=== PATIENT | male | born 1965 | race Caucasian/White ===

== ENCOUNTER 2018-03-05 09:27 | Emergency (ER) | payer BC ==
--- NOTE | 2018-03-05 10:42 | EDM.PDOC ---
ED HPI GENERAL MEDICAL PROBLEM - General Chief Complaint: ENT Problem Stated Complaint: LT SIDE OF FACE SWOLLEN Time Seen by Provider: 03/05/18 10:30 Source of Information: Reports: Patient History Limitations: Reports: No Limitations - History of Present Illness INITIAL COMMENTS - FREE TEXT/NARRATIVE: HISTORY AND PHYSICAL: History of present illness: She comes to the emergency room complaining of tenderness and swelling just outside of his left ear. Symptoms haven't present for the past 2 days and feel as though they are worsening. He denies earaches and difficulty hearing. He's not had any drainage from his years. She is just tender with palpation to his left ear. Denies fever and chills no shortness of breath chest pain or difficulty breathing. He has not felt ill with any infections or illness. He works in a local [employer], and uses earplugs from time to time but not regularly. Review of systems: As per history of present illness and below otherwise all systems reviewed and negative. Past medical history: As per history of present illness and as reviewed below otherwise noncontributory. Surgical history: As per history of present illness and as reviewed below otherwise noncontributory. Social history: No reported history of drug or alcohol abuse. Family history: As per history of present illness and as reviewed below otherwise noncontributory. Physical exam: HEENT: Atraumatic, normocephalic. Unable to visualize TMs due to large amount of brown sticky wax present bilaterally. PERRLA. Oral mucous membranes are pink and moist. No tonsillar swelling erythema or exudate. No tenderness with palpation over his teeth and gums on the left side. Is mildly tender with palpation over the preauricular lymph nodes on the left side. Extends down into the upper left cervical chain. No supraclavicular lymphadenopathy is noted. Otherwise neck is supple. Lungs: Clear to auscultation, breath sounds equal bilaterally. Heart: S1S2, regular. Abdomen: Soft, nondistended, nontender. Pelvis: Stable nontender. Genitourinary: Deferred. Rectal: Deferred. Extremities: Atraumatic. Neurovascular unremarkable. Neuro: Awake, alert, oriented. Motor and sensory unremarkable throughout. Exam nonfocal. Impression: [Left preauricular lymphadenopathy] Plan: [Discussed with patient that it is difficult to visualize his TMs due to the large amount of wax that is present. Recommend [id number] DeBrox drops to thin wax. Amoxicillin 500 mg #30 sig 1 by mouth 3 times a day 0 refills. Strict return precautions are reviewed. He verbalized understanding and is in agreement with today's plan.] Definitive disposition and diagnosis as appropriate pending reevaluation and review of above. Left Ear Pain Score (Numeric/FACES): 3 - Related Data Allergies Allergy/AdvReac Type Severity Reaction Status Date / Time No Known Allergies Allergy Verified 03/05/18 09:37 Home Meds: Home Meds Clopidogrel [Plavix] 75 mg PO DAILY 03/05/18 [History] atorvaSTATin [Lipitor] 80 mg DAILY 03/05/18 [History] Past Medical History Cardiovascular History: Reports: High Cholesterol, [place], Stents Hematologic History: Reports: Anticoagulation Therapy - Infectious Disease History Infectious Disease History: Reports: Chicken Pox - Past Surgical History GI Surgical History: Reports: Cholecystectomy Social & Family History - Family History Family Medical History: Noncontributory - Tobacco Use Smoking Status *Q: Never Smoker - Caffeine Use Caffeine Use: Reports: None - Recreational Drug Use Recreational Drug Use: No ED ROS ENT - Review of Systems Review Of Systems: ROS reveals no pertinent complaints other than HPI. ED EXAM, ENT - Physical Exam Exam: See Below Course - Vital Signs Last Recorded V/S: Last Vital Signs Temp 96.7 F 03/05/18 09:34 Pulse 92 03/05/18 09:34 Resp 18 03/05/18 09:34 BP 135/93 H 03/05/18 09:34 Pulse Ox 97 03/05/18 09:34 - Orders/Labs/Meds Labs: Laboratory Tests 03/05/18 Range/Units 10:03 WBC 9.97 (4.0-11.0) K/uL RBC 5.11 (4.50-5.90) M/uL Hgb 15.7 (13.0-17.0) g/dL Hct 45.8 (38.0-50.0) % MCV 89.6 (80.0-98.0) fL MCH 30.7 (27.0-32.0) pg MCHC 34.3 (31.0-37.0) g/dL RDW Std Deviation 45.3 (28.0-62.0) fl RDW Coeff of Jame 14 (11.0-15.0) % Plt Count 193 (150-400) K/uL MPV 10.10 (7.40-12.00) fL Neut % (Auto) 71.3 (48.0-80.0) % Lymph % (Auto) 18.9 (16.0-40.0) % [place] % (Auto) 6.9 (0.0-15.0) % Eos % (Auto) 2.7 (0.0-7.0) % Baso % (Auto) 0.2 (0.0-1.5) % Neut # (Auto) 7.1 H (1.4-5.7) K/uL Lymph # (Auto) 1.9 (0.6-2.4) K/uL [place] # (Auto) 0.7 (0.0-0.8) K/uL Eos # (Auto) 0.3 (0.0-0.7) K/uL Baso # (Auto) 0.0 (0.0-0.1) K/uL Nucleated RBC % 0.0 /100WBC Nucleated RBCs # 0 K/uL Departure - Departure Time of Disposition: 10:45 Disposition: Home, Self-Care 01 Condition: Good Clinical Impression: Preauricular lymphadenopathy - Discharge Information Referrals: PCP,None [Primary Care Provider] - Additional Instructions: The following information is given to patients seen in the emergency department who are being discharged to home. This information is to outline your options for follow-up care. We provide all patients seen in our emergency department with a follow-up referral. The need for follow-up, as well as the timing and circumstances, are variable depending upon the specifics of your emergency department visit. If you don't have a primary care physician on staff, we will provide you with a referral. We always advise you to contact your personal physician following an emergency department visit to inform them of the circumstance of the visit and for follow-up with them and/or the need for any referrals to a consulting specialist. The emergency department will also refer you to a specialist when appropriate. This referral assures that you have the opportunity for follow-up care with a specialist. All of these measure are taken in an effort to provide you with optimal care, which includes your follow-up. Under all circumstances we always encourage you to contact your private physician who remains a resource for coordinating your care. When calling for follow-up care, please make the office aware that this follow-up is from your recent emergency room visit. If for any reason you are refused follow-up, please contact the [facility] emergency department at and asked to speak to the emergency department charge nurse. [facility] [address] [place] [id number] Follow-up with your primary care provider at the clinic listed above in 48-72 hours. Tylenol or ibuprofen as needed for discomfort. Take antibiotics as prescribed. Return to ER as needed as discussed.
== END 2018-03-05 11:05 | disposition home or self-care (01) ==
LOC: MW.ED 09:27
DX: R59.0 Localized enlarged lymph nodes (principal); Z79.01 Long term (current) use of anticoagulants; Z79.899 Other long term (current) drug therapy
CPT/HCPCS: 36415; 85025; 99283